=== PATIENT | female | born 1975 | race American Indian/Alaskan Native ===

== ENCOUNTER 2017-06-27 12:27 | Emergency (ER) | payer SELFPAY ==
[2017-06-27 12:36] VITALS: BP 129/91
[2017-06-27] MEDS ORDERED: ZOFRAN ODT PO ONE (13:33)
[2017-06-27] MEDS ORDERED: NORCO 7.5/325 PO ONE (13:33)
[2017-06-27] MEDS ORDERED: BOOSTRIX IM ONE (13:33)
--- NOTE | 2017-06-27 13:40 | Emergency Department Report ---
ED Fall HPI - General Chief Complaint: Fall Stated Complaint: FELL IN DRAIN PAIN ALL OVER Time Seen by Provider: 06/27/17 13:25 Source: patient, family Mode of arrival: Ambulatory Limitations: No Limitations - History of Present Illness Complaint: fall -: Sudden Fall From: standing When Fall Occurred: other (YEST) Fall Witnessed: yes, by family Loss of Consciousness: none Prolonged Down Time?: no Symptoms Prior to Fall: none, other (ETOH) Location: other Location - Extremities: Right: Leg Severity: mild Context: other (FELL INTO PARTIALLY COVERED MAN HOLE) Associated Symptoms: other (AMBULATORY). denies: headache, neck pain, numbness , weakness, chest paint, shortness of breath, abdominal pain, hematuria, unable to walk, lightheaded, vertigo, confusion - Related Data Previous Rx's Medication Instructions Recorded Last Taken Type traMADol [Ultram] 50 mg PO Q6HR PRN #12 tablet 06/27/17 Unknown Rx Allergies Allergy/AdvReac Type Severity Reaction Status Date / Time No Known Allergies Allergy Unverified 06/27/17 12:33 ED Review of Systems ROS: Stated complaint: FELL IN DRAIN PAIN ALL OVER Other details as noted in HPI Comment: All other systems reviewed and negative Musculoskeletal: other (R HIP PAIN AND ABRASION) Skin: other ( R HIP ABRASION) ED Past Medical Hx - Past Medical History Previous Medical History?: No - Surgical History Past Surgical History?: No - Social History Smoking Status: Never Smoker Substance Use Type: Alcohol - Medications Home Medications: Home Medications Medication Instructions Recorded Confirmed Last Taken Type traMADol [Ultram] 50 mg PO Q6HR PRN #12 tablet 06/27/17 Unknown Rx ED Physical Exam - General Limitations: No Limitations General appearance: alert - Head Head exam: Present: atraumatic - Eye Eye exam: Present: normal appearance Pupils: Present: normal accommodation - ENT ENT exam: Present: mucous membranes moist - Neck Neck exam: Present: normal inspection - Respiratory Respiratory exam: Present: normal lung sounds bilaterally - Cardiovascular Cardiovascular Exam: Present: regular rate - GI/Abdominal GI/Abdominal exam: Present: soft - Rectal Rectal exam: Present: deferred - Extremities Exam Extremities exam: Present: full ROM, normal capillary refill - Expanded Lower Extremity Exam Right Hip exam: Present: abrasion, ecchymosis Upper Leg exam: Present: normal inspection Knee exam: Present: normal inspection Lower Leg exam: Present: normal inspection Ankle exam: Present: normal inspection Foot/Toe exam: Present: normal inspection - Back Exam Back exam: Present: normal inspection, full ROM. Absent: tenderness, CVA tenderness (R) - Neurological Exam Neurological exam: Present: alert, oriented X3, CN II-XII intact, normal gait - Psychiatric Psychiatric exam: Present: normal affect, normal mood - Skin Skin exam: Present: warm, dry - Expanded Skin Exam Expanded 1 - ABRASION ED Course Vital Signs 06/27/17 12:33 Temperature 98.8 F Pulse Rate 96 H Respiratory 16 Rate Blood Pressure 129/91 O2 Sat by Pulse 100 Oximetry - Reevaluation(s) Reevaluation #1: 06/28/17 TO ER P FALLING THE NIGHT BEFORE INTO A PARTIALLY COVERED MAN HOLE SHE WENT HOME WENT TO BE AND WAS SORE TODAY R HIP ABRASION AMBULATORY N/V AND NEURO INTACT MEDICATED FOR PAIN XRAY NOTED AMBULATED IN ER TDAP UPDATED DC HOME W DC POC VSS 120/80,88, 14, 99 SAT ON RA ON DC ED Medical Decision Making - Radiology Data Radiology results: report reviewed, image reviewed - Medical Decision Making SEE NOTE - Differential Diagnosis RO FX Critical care attestation.: If time is entered above; I have spent that time in minutes in the direct care of this critically ill patient, excluding procedure time. ED Disposition Clinical Impression: Fall, Abrasion Disposition: DC- TO HOME OR SELFCARE Is pt being admited?: No Does the pt Need Aspirin: No Condition: Stable Instructions: Abrasion (ED) Additional Instructions: ICE ALT HEAT TO SORE AREAS MED ORDERED FOLLOW UP PCP OR ORTHO NEXT WEEK NO FRACTURES ON XRAY Prescriptions: traMADol [Ultram] 50 mg PO Q6HR PRN #12 tablet PRN Reason: Pain Referrals: PRIMARY CARE,MD [Primary Care Provider] - 3-5 Days PHILL SOLOMON MD [Staff Physician] - 3-5 Days Forms: Work/School Release Form(ED) Time of Disposition: 17:02
[2017-06-27 15:55] LABS: Bilirubin,Urine NEG (Negative); Blood,Urine MOD (Negative); Ketones,Urine NEG (Negative); Leukocyte Esterase,Urine NEG (Negative); Mucus,Urine FEW /HPF; Nitrite,Urine NEG (Negative); Protein,Urine <15 mg/dL mg/dL (Negative); Urobilinogen,Urine < 2.0 mg/dL (<2.0)
--- NOTE | 2017-06-27 16:54 | XRay Report ---
FINAL REPORT PROCEDURE: XR HIP 2-3V RT TECHNIQUE: RIGHT hip radiographs, 2 views each, including AP view of the pelvis. HISTORY: FALL R HIP PAIN COMPARISON: No prior studies are available for comparison. FINDINGS: No acute fracture is visible. No joint dislocation. No focal osseous lesions are seen. IMPRESSION: No acute fracture is visible
[2017-06-27] MEDS ORDERED: NORCO 5/325 PO ONE (16:59)
== END 2017-06-27 17:48 | disposition home or self-care (01) ==
LOC: ED 12:27
DX: S70.01XA Contusion of right hip, initial encounter (principal); W17.1XXA Fall into storm drain or manhole, initial encounter; Y93.89 Activity, other specified; Y92.89 Other specified places as the place of occurrence of the external cause; Y99.8 Other external cause status
CPT/HCPCS: 81001; 81025; 90471; 90715; 99284; Q0162